=== PATIENT | female | born 1985 | race Caucasian/White ===

== ENCOUNTER → 2017-08-11 | Outpatient (CLI) | payer BC ==
[~2017-08-11] VITALS: Ht 170.2 cm; Wt 70.9 kg
[~2017-08-11] MED LIST: DOXYCYCLINE HY100 MG PO; FEOSOL325 MG PO; HYDROCODON-ACE1 EAC7 PO; IBUPROFEN800 MG PO; Motrin PO; PRENATAL TABLE1 EAC3 PO; Percocet 5/325,Endoc PO
[2017-08-11 09:54] VITALS: BP 123/58
== END | disposition home or self-care (01) ==
LOC: IVINF 09:44
DX: Z34.83 Encounter for supervision of other normal pregnancy, third trimester (principal); Z3A.28 28 weeks gestation of pregnancy; Z67.11 Type A blood, Rh negative
CPT/HCPCS: 96372; J2790

== ENCOUNTER 2017-10-22 13:54 | Inpatient (IN) | payer BC ==
[2017-10-22] VITALS (14 sets, daily range): BP systolic 100–136; BP diastolic 57–80
[~2017-10-22] VITALS: Ht 170.2 cm; Wt 77.3 kg
[2017-10-22 14:59] LABS: BASOPHIL (%) 0.5 % (0-1); BASOPHIL COUNT 0.1 K/uL (0-0.1); EOSINOPHIL (%) 0.6 % (0-5); EOSINOPHIL COUNT 0.1 K/uL (0-0.3); HEMATOCRIT 34.5 % (36.0-46.0); IMMATURE GRANULOCYTE (%) 0.5 % (0.0-0.7); LYMPHOCYTE (%) 12.7 % (15-42); LYMPHOCYTE COUNT 1.3 K/uL (1.0-2.8); MCHC 31.9 G/DL (30.0-36.0); MCV 84.8 FL (83-99); MONOCYTE (%) 6.9 % (3-12); MONOCYTE COUNT 0.7 K/uL (0-0.8); NEUTROPHIL (%) 78.8 % (45-76); NEUTROPHIL COUNT 8.2 K/uL (1.8-6.4); PLATELET COUNT 231 K/uL (156-360); RBC DIS.WIDTH-CV 13.8 % (11.8-14.6); RBC DIS.WIDTH-SD 42.7 % (39-53); RED BLOOD COUNT 4.07 M/uL (3.80-5.20); WHITE BLOOD COUNT 10.4 K/uL (4.1-10.2)
[2017-10-22 15:51] LABS: AMPHETAMINE NEGATIVE (500 ng/mL); BARBITURATES NEGATIVE (200 ng/mL); BENZODIAZEPINES NEGATIVE (150 ng/mL); BUPRENORPHINE NEGATIVE (10 ng/mL); COCAINE NEGATIVE (150 ng/mL); METHADONE NEGATIVE (200 ng/mL); METHAMPHETAMINE NEGATIVE (500 ng/mL); OPIATES (MORPHINE) NEGATIVE (100 ng/mL); OXYCODONE NEGATIVE (100 ng/mL); PHENCYCLIDINE NEGATIVE (25 ng/mL); PROPOXYPHENE NEGATIVE (300 ng/mL); THC CANNABINOIDS NEGATIVE (50 ng/mL); TRICYCLIC ANTIDEPRESSANTS NEGATIVE (300 ng/mL)
[2017-10-22] MEDS ORDERED: IBUPROFEN800 MG PO (20:16)
[2017-10-23 07:47] VITALS: BP 116/55
[2017-10-23 23:00] VITALS: BP 112/54
[2017-10-24 11:43] VITALS: BP 127/69
== END 2017-10-24 21:05 | disposition home or self-care (01) | DRG 775 ==
LOC: LDRP-OP 13:54 → 2WEST 13:55 → LDRP-OP 11-28 06:21
PROVIDERS: Advanced Practice Midwife
PROC: 10907ZC Drainage of Amniotic Fluid, Therapeutic from Products of Conception, Via Natural or Artificial Opening (ICD-10-PCS; principal; 2017-10-22)
PROC: 00HU33Z Insertion of Infusion Device into Spinal Canal, Percutaneous Approach (ICD-10-PCS; principal; 2017-10-22)
PROC: 10E0XZZ Delivery of Products of Conception, External Approach (ICD-10-PCS; principal; 2017-10-22)
PROC: 3E033VJ Introduction of Other Hormone into Peripheral Vein, Percutaneous Approach (ICD-10-PCS; 2017-10-22)
PROC: 3E0R3BZ Introduction of Anesthetic Agent into Spinal Canal, Percutaneous Approach (ICD-10-PCS; 2017-10-22)
DX: O99.824 Streptococcus B carrier state complicating childbirth (principal); Z3A.39 39 weeks gestation of pregnancy; Z37.0 Single live birth
CPT/HCPCS: 83030; 85025; 86850; 86900; 86901; C1755; J2540; J2790; J3010; J7120